=== PATIENT | female | born 1985 | race Caucasian/White ===

== ENCOUNTER → 2016-10-05 | Outpatient (CLI) | payer OTHER ==
--- NOTE | 2016-10-05 08:17 | US ---
EXAMINATION TYPE: US abdomen complete DATE OF EXAM: 10/05/2016 COMPARISON: 07/14/2014 CLINICAL HISTORY: N93.8 abnormal uterine and vaginal bleeding. Bloating, epigastric pain, cholecystec levi EXAM MEASUREMENTS: Liver Length: 17.6 cm Gallbladder Wall: Surgically absent CBD: 0.5 cm Spleen: 10.4 cm Right Kidney: 12.8 x 4.7 x 6.5 cm Left Kidney: 11.5 x 6.8 x 6.5 cm Pancreas: visualized portions appear wnl, tail obscured by overlying bowel Liver: enlarged and attenuating Gallbladder: Surgically absent Evidence for sonographic Schilling's sign: No CBD: wnl Spleen: appears wnl Right Kidney: dilated renal pelvis Left Kidney: no evidence of hydronephrosis or mass Upper IVC: wnl Abd Aorta: wnl The liver is enlarged and attenuating. Other changes of prior cholecystectomy. The intrahepatic porti on of the IVC and proximal abdominal aorta are within normal limits. Common bile duct is unremarkab le. The visualized portions of the pancreas are homogenous. The spleen is unremarkable. Kidneys ar e symmetric and free of hydronephrosis. No renal lesions are seen. IMPRESSION: 1. Fatty hepatic infiltration with mild hepatomegaly.
--- NOTE | 2016-10-05 08:18 | US ---
EXAMINATION TYPE: US pelvis complete transvag DATE OF EXAM: 10/05/2016 COMPARISON: NONE CLINICAL HISTORY: N93.8 abnormal uterine and vaginal bleeding. Intermittent cramping. 05/20 TECHNIQUE: Transvaginal (TV) and Transabdominal (TA) Date of LMP: May, spotting in July EXAM MEASUREMENTS: Uterus: 9.8 x 3.7 x 5.6 cm Endometrial Stripe: 1.6 cm Right Ovary: 3.3 x 2.1 x 2.0 cm Left Ovary: 3.4 x 2.2 x 1.9 cm 1. Uterus: Anteverted Nabothian cysts noted 2. Endometrium: thickened 3. Right Ovary: follicles noted 4. Left Ovary: cystic area = 2.0 x 1.4 x 2.1cm 5. Bilateral Adnexa: wnl 6. Posterior cul-de-sac: wnl IMPRESSION: 1. Probable functional left ovarian cyst. This can be confirmed with follow-up study in 6 weeks.
== END | disposition home or self-care (01) ==
LOC: RADUSWWP 06:57
PROVIDERS: ATTEND Family Medicine
DX: K76.0 Fatty (change of) liver, not elsewhere classified (principal); R16.0 Hepatomegaly, not elsewhere classified; N93.8 Other specified abnormal uterine and vaginal bleeding; R14.0 Abdominal distension (gaseous); R10.2 Pelvic and perineal pain
CPT/HCPCS: 76700; 76830; 76856

== ENCOUNTER → 2016-12-05 | Outpatient (CLI) | payer OTHER ==
--- NOTE | 2016-12-05 15:16 | US ---
EXAMINATION TYPE: US pelvic complete DATE OF EXAM: 12/05/2016 COMPARISON: US 2017 CLINICAL HISTORY: N83.202 Unspecified Ovarian Cyst. Followup left ovarian cyst. TECHNIQUE: Transvaginal (TV) and Transabdominal (TA) as unable to see left ovary by TA US. Date of LMP: 10/20/2016 EXAM MEASUREMENTS: Uterus: 9.9 x 4.3 x 3.7 cm Endometrial Stripe: 1.1 cm Right Ovary: 4.4 x 2.9 x 1.6 cm Left Ovary: 3.8 x 2.3 x 2.1 cm 1. Uterus: Anteverted; multiple small Nabothian cysts in CX with largest = 0.4 x 0.5 x 0.4cm. 2. Endometrium: unable to correlate thickness with Day 46LMP 3. Right Ovary: multiple small follicles 4. Left Ovary: multiple small follicles with largest = 0.8 x 0.7 x 0.6cm. 5. Bilateral Adnexa: wnl 6. Posterior cul-de-sac: wnl IMPRESSION: 1. Normal pelvic ultrasound
== END | disposition home or self-care (01) ==
LOC: RADUSWWP 14:19
PROVIDERS: ATTEND Family Medicine
DX: N88.8 Other specified noninflammatory disorders of cervix uteri (principal); N83.202 Unspecified ovarian cyst, left side
CPT/HCPCS: 76830; 76856

== ENCOUNTER → 2017-07-30 | Outpatient (CLI) | payer OTHER ==
--- NOTE | 2017-07-30 15:06 | CT ---
EXAMINATION TYPE: CT abdomen pelvis w con DATE OF EXAM: 07/30/2017 COMPARISON: NONE HISTORY: Abnormal weightloss and diarrhea CT DLP: 1415 mGycm Automated exposure control for dose reduction was used. CONTRAST: CT scan of the abdomen pelvis is performed with IV Contrast, patient injected with 100 ml mL of Isovu e 300. FINDINGS- LUNG BASES-subsegmental changes at both lung bases most typical of atelectasis. Pleural-based density involving the left lower lobe measuring 5 mm too small to characterize.. LIVER/GB-postcholecystectomy changes noted.. PANCREAS- No gross abnormality is seen. SPLEEN- No gross abnormality is seen. ADRENALS-nonspecific thickening of the left adrenal gland.. KIDNEYS/BLADDER- no hydronephrosis nephrolithiasis or renal mass. BOWEL-bowel gas pattern is nonspecific. There is a normal appendix. Portions of the left colon are no ndiagnostic due to incomplete distention.. LYMPH NODES- No greater than 1cm abdominal or pelvic lymph nodes areappreciated. OSSEOUS STRUCTURES- No significant abnormality is seen. OTHER- 3.2 cm left adnexal cyst likely related to the ovary. Tiny fat-containing periumbilical herni a. IMPRESSION- 1. 3.2 similar left adnexal cyst likely ovarian. Correlate clinically. 2. Postcholecystectomy changes. 3. Nonspecific thickening left adrenal gland correlate for adrenal hyperplasia. 4. Limited assessment of the left colon due to incomplete distention.
== END | disposition home or self-care (01) ==
LOC: RADCTMAIN 12:44
PROVIDERS: ATTEND Physician Assistant Medical
DX: N85.8 Other specified noninflammatory disorders of uterus (principal); R19.7 Diarrhea, unspecified; R11.0 Nausea; R63.4 Abnormal weight loss; Z90.49 Acquired absence of other specified parts of digestive tract
CPT/HCPCS: 74177; Q9967

== ENCOUNTER 2017-09-07 06:53 | Day surgery (SDC) | payer OTHER ==
[~2017-09-07 06:53] MED LIST: LACTATED RINGERS 1,000 ML IV SCH; LIDOCAINE 1% 20 ML VIAL (10MG/ML) FOR IV START INTRADERMA PRN; MIDAZOLAM 2 MG/2 ML VIAL IV PRN
[2017-09-07] MEDS ORDERED: ONDANSETRON 4 MG/2 ML VIAL IVP ONE (07:46)
[2017-09-07] MEDS ORDERED: LIDOCAINE 1% INJ 10MG/ML (20 ML MDV) ONE (08:04)
[2017-09-07] MEDS ORDERED: PROPOFOL 10 MG/ML 20 ML VIAL IV ONE (08:04)
--- NOTE | 2017-09-07 08:06 | P.GSHP ---
History of Present Illness H&P Date: 09/07/17 Chief Complaint: Diarrhea This is a 31-year-old female referred from Dr. Lewis. She presents today for colonoscopy. Past Medical History Past Medical History: Sleep Apnea/CPAP/BIPAP, Thyroid Disorder Additional Past Medical History / Comment(s): Uses CPAP, diarrhea X3 months, enlarged adrenal gland. History of Any Multi-Drug Resistant Organisms: None Reported Past Surgical History: Section, Cholecystectomy Past Anesthesia/Blood Transfusion Reactions: Family History of Problems w/ Anesthesia, Postoperative Nausea & Vomiting (PONV) Additional Past Anesthesia/Blood Transfusion Reaction / Comment(s): Mother and sister PONV Past Psychological History: Anxiety, Depression Smoking Status: Current every day smoker Past Alcohol Use History: None Reported Additional Past Alcohol Use History / Comment(s): Has been smoking 1 PPD for 20 yrs. Past Drug Use History: None Reported - Past Family History Mother Family Medical History: No Reported History Medications and Allergies Home Medications Medication Instructions Recorded Confirmed Type ALPRAZolam [Xanax] 0.5 mg PO DAILY PRN 08/29/14 09/05/17 History Citalopram Hydrobromide [CeleXA] 40 mg PO DAILY 08/29/14 09/05/17 History Levothyroxine Sodium [Synthroid] 100 mcg PO DAILY 08/29/14 09/05/17 History Ondansetron Odt [Zofran Odt] 4 mg PO Q8HR PRN 08/29/14 09/05/17 History Norgestimate-Ethinyl Estradiol 1 each PO DAILY 09/05/17 09/05/17 History [Femynor 28 Tablet] Allergies Allergy/AdvReac Type Severity Reaction Status Date / Time No Known Allergies Allergy Verified 09/05/17 10:22 Surgical - Exam - General well developed, no distress - Eyes PERRL - ENT normal pinna, normal mucosa - Neck no masses - Respiratory normal expansion - Cardiovascular Rhythm: regular - Abdomen Abdomen: soft, non tender Assessment and Plan Assessment: History diarrhea. We'll perform colonoscopy.
--- NOTE | 2017-09-07 08:19 | P.OP ---
Date of Procedure: 09/07/17 Preoperative Diagnosis: Diarrhea, abdominal pain Postoperative Diagnosis: Normal colonoscopy, Sigmoid colon biopsy pathology pending Procedure(s) Performed: Colonoscopy Anesthesia: MAC Surgeon: Pio Esqueda Pathology: other (Sigmoid colon) Condition: stable Disposition: PACU Description of Procedure: The patient's placed on the endoscopy table in the lateral position. She received IV sedation. Digital rectal exam was performed which revealed no abnormalities. The flexible colonoscope was then placed patient anus passed throughout the entire colon. The ileocecal valve was visualized. The cecum, ascending and transverse colon appeared normal. The descending and sigmoid colon appeared normal. There were no diverticular polyps. A random biopsy the sigmoid colon was performed with a cold forcep. The scope was then brought back the rectum and this appeared normal. Scope was withdrawn for patient.
[2017-09-07 08:25] VITALS: RESP 16
[2017-09-07 08:44] VITALS: BP 123/77; PULSE 60
== END 2017-09-07 08:53 | disposition home or self-care (01) ==
LOC: ORWHC2ENDO 06:53
PROVIDERS: ATTEND Surgery
DX: K63.89 Other specified diseases of intestine (principal); E07.9 Disorder of thyroid, unspecified; G47.33 Obstructive sleep apnea (adult) (pediatric); Z99.89 Dependence on other enabling machines and devices; F41.9 Anxiety disorder, unspecified; F32.9 Major depressive disorder, single episode, unspecified; F17.210 Nicotine dependence, cigarettes, uncomplicated; Z79.3 Long term (current) use of hormonal contraceptives; Z79.890 Hormone replacement therapy; Z79.899 Other long term (current) drug therapy
CPT/HCPCS: 88305; 45380; J2250; J2405; J2001; J2704

== ENCOUNTER → 2018-08-31 | Outpatient (CLI) | payer OTHER ==
--- NOTE | 2018-08-31 16:26 | MR ---
EXAMINATION TYPE: MR brain wo con DATE OF EXAM: 08/31/2018 COMPARISON: CT brain 08/29/2014 HISTORY: Rt. sided [place] Palsy Standard multiplanar, multisequence MRI departmental protocol Multiplanar, multisequence images of the brain were acquired. Diffusion weighted imaging was performe d. FINDINGS: Ventricles and sulci appear normal. There is no mass effect nor midline shift. There is no sign of intracranial hemorrhage. Corpus callosum appears normal. Brainstem is intact. There is no garrick dence of cortical infarct. Sella turcica appears normal. There is moderate mucosal thickening in the maxillary sinuses. There is left side ethmoid sinus mucosal thickening. On the FLAIR images there are a few scattered white matter high signal foci in the temporal and parie gale lobes bilaterally that measure up to 7 mm. Total number is approximately 5. IMPRESSION: There are a few white matter high signal foci in the subcortical region as above. Appearance is nons pecific. I would consider both demyelinating disease and chronic small vessel ischemia. Ethmoid and maxillary sinusitis.
== END | disposition home or self-care (01) ==
LOC: RADMRIMAIN 14:36
PROVIDERS: ATTEND Psychiatry & Neurology Neurology
DX: R90.82 White matter disease, unspecified (principal); G51.0 Bell's palsy
CPT/HCPCS: 70551

== ENCOUNTER 2018-10-10 06:25 | Day surgery (SDC) | payer OTHER ==
[2018-10-08 16:01] VITALS: BMI 38.6
[2018-10-10 07:04] VITALS: RESP 16; TEMP 97.7
[2018-10-10] MEDS ORDERED: LACTATED RINGERS 1,000 ML IV ONE (07:12)
[2018-10-10] MEDS ORDERED: LIDOCAINE 1% 20 ML VIAL (10MG/ML) FOR IV START INTRADERMA ONE (07:14)
--- NOTE | 2018-10-10 07:48 | P.PCN ---
Date of Procedure: 10/10/18 Description of Procedure: Procedure: Lumbar Puncture . Preoperative Diagnoses: rule out M.S Postoperative Diagnosis: rule out M.S Anesthesia: IV sedation with Versed and local Condition: stable. Complications: none. Description of the procedure: Patient was consented in the preoperative area we discussed the risks benefits and alternatives to the procedure. The patient was Brought the patient into the procedure room and she was placed in the sitting position.. The back was cleansed with iodine 3. Fluoroscopy was used to identify the pain lumbar level. At that point lidocaine 1% was used to anesthetize the skin, total of 5 mL was used. A 22 gauge spinal needle was advanced until spinal fluid was aspirated through the needle and a three - way stop cock. CSF was obtained and sent off to laboratory for examination. Band-Aid was placed after the procedure the patient was instructed to lay flat for the next few hours. The patient was discharged from the PACU in stable condition.
[2018-10-10] MEDS ORDERED: IV FLUID CONTINUATION 1,000 ML IV ONE (07:52)
[2018-10-10 08:13] VITALS: BP 141/90; PULSE 79
[2018-10-10 12:49] LABS: Glucose,CSF 54 mg/dL (40-70); Total Protein,CSF 36 mg/dL (12-60)
[2018-10-10 13:08] LABS: Appearance,CSF Clear; CSF Tube Number 4; CSF Tube Volume 1.8; Nucleated Cells, CSF 1 u/L (0-5); Red Blood Cell,CSF 0 u/L (0-10)
[2018-10-10 13:31] LABS: T4, Free (Free Thyroxine) 0.88 ng/dL (0.78-2.19)
[2018-10-10 19:11] LABS: Rheumatoid Factor 7 IU/mL (0-15)
[2018-10-10 20:05] LABS: DNA Double-Stranded NEGATIVE (NEGATIVE); RNP <0.2 AI
[2018-10-11 09:10] LABS: Angiotensin-1 Converting Enz. 49 U/L (8-52)
[2018-10-11 10:34] LABS: VDRL, Qualitative CSF Nonreactive (Nonreactive)
[2018-10-11 12:42] LABS: APTT 38 Sec(s) (<43); Dilute Russell Viper Venom 44 Sec(s) (<44)
[2018-10-11 14:30] LABS: Lyme IgG/IgM 0.22 Index
[2018-10-15 13:07] LABS: IgG - CSF 2.2 mg/dL (0.0 - 3.4); IgG/Albumin Index (CSF) 0.49 (0.00 - 0.77); Immunoglobulin G 937 mg/dL (700 - 1600)
== END 2018-10-10 08:25 | disposition home or self-care (01) ==
LOC: ORPAIN 06:25
PROVIDERS: ATTEND Hospitalist
DX: G93.2 Benign intracranial hypertension (principal); R20.2 Paresthesia of skin; R53.83 Other fatigue
CPT/HCPCS: 81025; 86592; 86235 ×3; 84439; 88108; 84157; 82945; 82040; 82042; 82784; 83916; 82164 ×2; 83873; 84443; 84450; 84460; 85730; 86431; 85613; 89050; 84703; 86618; 86780; 86038; 86225; 87801; 62270; J2250; J3010